=== PATIENT | female | born 2000 | race Caucasian/White ===

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

== ENCOUNTER 2019-06-07 00:33 | Emergency (ER) | payer OTHER, SELFPAY ==
--- NOTE | 2019-06-07 01:06 | EDPHYS ---
Physician Documentation [facility] Name: Miriam Ross Age: 19 yrs Sex: Female : 2000 Arrival Date: 06/07/2019 Time: 00:35 Bed 14 Private MD: ED Physician Chris Orozco HPI: 06/07 00:59 This 19 yrs old Female presents to ER via Ambulatory with complaints of [facility] Allergic Reaction. 00:59 The patient presents with itching, rash, that is diffuse. 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 - Social history:: Smoking status: Patient/guardian denies using tobacco, Patient/guardian denies using alcohol, street drugs. - Ebola Screening: : Patient negative for fever greater than or equal to 101.5 degrees Fahrenheit, and additional compatible Ebola Virus Disease symptoms Patient denies exposure to infectious person Patient denies travel to an Ebola-affected area in the 21 days before illness onset. - Family history:: not pertinent. ROS: 00:59 Constitutional: Negative for fever, chills, and weight loss, Eyes: Negative for injury, janis pain, redness, and discharge, ENT: Negative for injury, pain, and discharge, Neck: Negative for injury, pain, and swelling, Cardiovascular: Negative for chest pain, palpitations, and edema, Respiratory: Negative for shortness of breath, cough, wheezing, and pleuritic chest pain, Abdomen/GI: Negative for abdominal pain, nausea, vomiting, diarrhea, and constipation, Back: Negative for injury and pain, : Negative for injury, bleeding, discharge, and swelling, MS/Extremity: Negative for injury and deformity, Neuro: Negative for headache, weakness, numbness, tingling, and seizure, Psych: Negative for depression, anxiety, suicide ideation, homicidal ideation, and hallucinations, Allergy/Immunology: Negative for hives, rash, and allergies, Endocrine: Negative for neck swelling, polydipsia, polyuria, polyphagia, and marked weight changes, Hematologic/Lymphatic: Negative for swollen nodes, abnormal bleeding, and unusual bruising. 00:59 Skin: Positive for rash, diffusely. Exam: 00:59 Constitutional: This is a well developed, well nourished patient who is awake, alert, janis and in no acute distress. Head/Face: Normocephalic, atraumatic. Eyes: Pupils equal round and reactive to light, extra-ocular motions intact. Lids and lashes normal. Conjunctiva and sclera are non-icteric and not injected. Cornea within normal limits. Periorbital areas with no swelling, redness, or edema. ENT: Nares patent. No nasal discharge, no septal abnormalities noted. Tympanic membranes are normal and external auditory canals are clear. Oropharynx with no redness, swelling, or masses, exudates, or evidence of obstruction, uvula midline. Mucous membranes moist. Neck: Trachea midline, no thyromegaly or masses palpated, and no cervical lymphadenopathy. Supple, full range of motion without nuchal rigidity, or vertebral point tenderness. No Meningismus. Chest/axilla: Normal chest wall appearance and motion. Nontender with no deformity. No lesions are appreciated. Cardiovascular: Regular rate and rhythm with a normal S1 and S2. No gallops, murmurs, or rubs. Normal PMI, no JVD. No pulse deficits. Respiratory: Lungs have equal breath sounds bilaterally, clear to auscultation and percussion. No rales, rhonchi or wheezes noted. No increased work of breathing, no retractions or nasal flaring. Abdomen/GI: Soft, non-tender, with normal bowel sounds. No distension or tympany. No guarding or rebound. No evidence of tenderness throughout. Back: No spinal tenderness. No costovertebral tenderness. Full range of motion. Female : Normal external genitalia. MS/ Extremity: Pulses equal, no cyanosis. Neurovascular intact. Full, normal range of motion. Neuro: Awake and alert, GCS 15, oriented to person, place, time, and situation. Cranial nerves II-XII grossly intact. Motor strength 5/5 in all extremities. Sensory grossly intact. Cerebellar exam normal. Normal gait. Psych: Awake, alert, with orientation to person, place and time. Behavior, mood, and affect are within normal limits. 00:59 Skin: Appearance: Color: normal in color, Temperature: normal temperature, warm, Moisture: normal moisture, petechiae, not noted, ecchymosis, not noted, that are mild. Vital Signs: 00:45 BP 116 / 75; Pulse 93; Resp 20; Temp 98.1(O); Pulse Ox 99% on R/A; Weight 78.47 kg (R); fc Height 5 ft. 6 in. (167.64 cm) (R); Pain 0/10; 00:45 Body Mass Index 27.92 (78.47 kg, 167.64 cm) MDM: 00:49 Patient medically screened. [facility] 01:05 Data reviewed: vital signs, nurses notes. [facility] Administered Medications: 01:19 Drug: Benadryl 25 mg Route: PO; 02:28 Follow up: Response: No adverse reaction 01:21 Drug: predniSONE 60 mg Route: PO; 02:29 Follow up: Response: No adverse reaction 01:23 Drug: Pepcid 40 mg Route: PO; 02:29 Follow up: Response: No adverse reaction Disposition: 06/07/19 01:06 Discharged to Home. Impression: Urticaria, Urticaria, unspecified. - Condition is Stable. - Discharge Instructions: Hives, Hives, [id number]. - Prescriptions for Benadryl 25 mg Oral Capsule - take 1 capsule by ORAL route every 6 hours As needed; 30 tablet. Pepcid 20 mg Oral Tablet - take 1 tablet by ORAL route every 12 hours for 10 days; 20 tablet. Prednisone 20 mg Oral Tablet - take 2 tablet by ORAL route once daily for 5 days; 10 tablet. EpiPen 0.3 mg Injection auto- injector - inject 1 pen by INTRAMUSCULAR route one time Inject into the outer portion of the thigh, through clothing if necessary. Indicated in the emergency treatment of allergic reactions; 1 box. - Medication Reconciliation Form, Thank You Letter, Antibiotic Education, Prescription Opioid Use form. - Follow up: Private Physician; When: 2 - 3 days; Reason: Recheck today's complaints, Continuance of care, Re-evaluation by your physician. - Problem is new. - Symptoms have improved. Signatures: Chris Orozco MD MD cha Chretien, Felicia, RN RN Summer Landa Corrections: (The following items were deleted from the chart) 01:52 01:06 06/07/2019 01:06 Discharged to Home. Impression: Urticaria; Urticaria, wh unspecified. Condition is Stable. Forms are Medication Reconciliation Form, Thank You Letter, Antibiotic Education, Prescription Opioid Use. Follow up: Private Physician; When: 2 - 3 days; Reason: Recheck today's complaints, Continuance of care, Re-evaluation by your physician. Problem is new. Symptoms have improved. janis
--- NOTE | 2019-06-07 01:06 | ER ---
Nurse's Notes [facility] Name: Miriam Ross Age: 19 yrs Sex: Female : 2000 Arrival Date: 06/07/2019 Time: 00:35 Bed 14 Private MD: Diagnosis: Urticaria;Urticaria, unspecified Presentation: 06/07 00:45 Presenting complaint: Patient states: that she is having allergic reaction to fc something. She has hives to arms, chest and back. Is very itchy. Transition of care: patient was not received from another setting of care. Onset: The symptoms/episode began/occurred gradually. Anaphylaxis evaluation, no signs or symptoms of anaphylaxis were noted. Onset of symptoms was June 06, 2019. Risk Assessment: Do you want to hurt yourself or someone else? Patient reports no desire to harm self or others. Initial Sepsis Screen: Does the patient meet any 2 criteria? No. Patient's initial sepsis screen is negative. Does the patient have a suspected source of infection? No. Patient's initial sepsis screen is negative. Care prior to arrival: Medication(s) given: Benadryl 50 mg at 2300. 00:45 Method Of Arrival: Ambulatory fc 00:45 Acuity: GIL 4 fc Triage Assessment: 01:00 General: Appears in no apparent distress. Behavior is calm, cooperative, appropriate wh for age. 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 - Social history:: Smoking status: Patient/guardian denies using tobacco, Patient/guardian denies using alcohol, street drugs. - Ebola Screening: : Patient negative for fever greater than or equal to 101.5 degrees Fahrenheit, and additional compatible Ebola Virus Disease symptoms Patient denies exposure to infectious person Patient denies travel to an Ebola-affected area in the 21 days before illness onset. - Family history:: not pertinent. Screenin:45 Abuse screen: Denies threats or abuse. Nutritional screening: No deficits noted. fc Tuberculosis screening: No symptoms or risk factors identified. Fall Risk None identified. Assessment: 01:00 General: Appears in no apparent distress. Behavior is calm, cooperative, appropriate for age. Pain: Denies pain. Neuro: Level of Consciousness is awake, alert, obeys commands, Oriented to person, place, time, situation, Appropriate for age. Cardiovascular: Heart tones S1 S2. Respiratory: Airway is patent Respiratory effort is even, unlabored, Respiratory pattern is regular, symmetrical. GI: Abdomen is flat, non-distended. : No signs and/or symptoms were reported regarding the genitourinary system. EENT: No signs and/or symptoms were reported regarding the EENT system. Derm: Rash noted that is itchy. Musculoskeletal: Circulation, motion, and sensation intact. 01:00 Respiratory: Breath sounds are clear bilaterally. Vital Signs: 00:45 BP 116 / 75; Pulse 93; Resp 20; Temp 98.1(O); Pulse Ox 99% on R/A; Weight 78.47 kg (R); fc Height 5 ft. 6 in. (167.64 cm) (R); Pain 0/10; 00:45 Body Mass Index 27.92 (78.47 kg, 167.64 cm) ED Course: 00:35 Patient arrived in ED. ds1 00:45 Arm band placed on Patient placed in an exam room, on a stretcher. 00:45 Patient has correct armband on for positive identification. Placed in gown. Bed in low fc position. Call light in reach. Pulse ox on. NIBP on. 00:45 No provider procedures requiring assistance completed. 00:48 Summer Landa is Primary Nurse. 00:48 Chris Orozco MD is Attending Physician. [facility] 00:52 Triage completed. 01:45 Patient did not have IV access during this emergency room visit. Administered Medications: 01:19 Drug: Benadryl 25 mg Route: PO; 02:28 Follow up: Response: No adverse reaction 01:21 Drug: predniSONE 60 mg Route: PO; 02:29 Follow up: Response: No adverse reaction 01:23 Drug: Pepcid 40 mg Route: PO; 02:29 Follow up: Response: No adverse reaction Outcome: 01:06 Discharge ordered by . janis 01:52 Patient left the ED. 02:28 Discharged to home ambulatory. 02:28 Condition: stable 02:28 Discharge instructions given to patient, Instructed on discharge instructions, follow up and referral plans. medication usage, POC Hives Demonstrated understanding of instructions, follow-up care, medications, POC Prescriptions given X 4. Signatures: Chris Orozco MD MD cha Chretien, Felicia, RN RN Nancy Levy ds1 Summer Landa
[2019-06-07 01:12] VITALS: BP 116/75; TEMP 98.1; O2SAT 99
[2019-06-07] MEDS ORDERED: DIPHENHYDRAMINE 25 MG TAB/CAP ONE (01:16)
[2019-06-07] MEDS ORDERED: predniSONE 20 MG TAB ONE (01:16)
[2019-06-07] MEDS ORDERED: FAMOTIDINE 20 MG TAB ONE (01:17)
== END 2019-06-07 01:52 | disposition home or self-care (01) ==
LOC: ER 00:33
DX: L50.9 Urticaria, unspecified (principal)
CPT/HCPCS: 99283; J7512

== ENCOUNTER 2022-02-03 11:40 | Emergency (ER) | payer OTHER, SELFPAY ==
[2022-02-03] MEDS ORDERED: DERMABOND SKIN ADHESIVE TOP ONE (12:23)
[2022-02-03] MEDS ORDERED: LIDOCAINE 1% MPF 5 ML VIAL ONE (12:23)
--- NOTE | 2022-02-03 13:50 | ER ---
Nurse's Notes [facility] Name: Miriam Ross Age: 21 yrs Sex: Female : 2000 Arrival Date: 02/03/2022 Time: 11:43 Bed 10 Private MD: Diagnosis: Laceration without foreign body of other part of head-left eyebrow Presentation: 02/03 11:45 Chief complaint: Patient states: "I blackout and fell and hit the corner of the table" vg1 Pt stated "i dont eat much and that's probably why I passed out, i dont know, my mom said i may have low iron". 11:45 Method Of Arrival: Ambulatory vg1 11:45 Coronavirus screen: Vaccine status: Patient reports being unvaccinated. Client denies 1 travel out of the [place] in the last 14 days. Ebola Screen: Patient denies exposure to infectious person. Patient denies travel to an Ebola-affected area in the 21 days before illness onset. Complicating Factors: There are no complicating factors for this patient. Initial Sepsis Screen: Does the patient meet any 2 criteria? HR > 90 bpm. Does the patient have a suspected source of infection? No. Patient's initial sepsis screen is negative. Risk Assessment: Do you want to hurt yourself or someone else? Patient reports no desire to harm self or others. Onset of symptoms was February 03, 2022. 11:45 Acuity: GIL 3 vg1 Triage Assessment: 11:45 General: Appears uncomfortable, Behavior is crying. Pain: Complains of pain in inner vg1 aspect of left eyebrow Pain currently is 10 out of 10 on a pain scale. Injury Description:. 11:45 Neuro: Level of Consciousness is awake, alert, obeys commands, Oriented to person, vg1 place, time, situation. 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 - Social history:: Smoking status: Patient denies any tobacco usage or history of. Assessment: 12:04 Reassessment: pt refused to blood work; stated just wanted to get stitches. Was vg1 educated the reason for blood work due to 'passing out' and pt continued to refuse. Musculoskeletal: Circulation, motion, and sensation intact. Injury Description: Laceration is jagged, bleeding moderately. Vital Signs: 11:45 BP 133 / 80; Pulse 100; Resp 16; Temp 99.0; Pulse Ox 100% ; Weight 67.13 kg; Height 5 vg1 ft. 6 in. (167.64 cm); Pain 10/10; 11:45 Body Mass Index 23.89 (67.13 kg, 167.64 cm) vg1 Spurgeon Coma Score: 12:26 Eye Response: spontaneous(4). Verbal Response: oriented(5). Motor Response: obeys pm1 commands(6). Total: 15. ED Course: 11:43 Patient arrived in ED. 11:45 Arm band placed on. vg1 11:50 Gerardo Holcomb NP is PHCP. pm1 11:50 Trent Davis MD is Attending Physician. pm1 12:02 Triage completed. vg1 12:15 Ann Katz RN is Primary Nurse. 14:30 Assist provider with laceration repair. Patient did not have IV access during this emergency room visit. Administered Medications: 12:45 Drug: Lidocaine (1 %) 5 ml {Note: Administered by BRIGID Carrillo.} Volume: 5 ml; Route: ss Infiltration; Outcome: 13:50 Discharge ordered by MD. pm1 14:05 Discharged to home ambulatory. 14:05 Condition: good 14:05 Discharge instructions given to patient, Instructed on discharge instructions, follow up and referral plans. medication usage, Demonstrated understanding of instructions, follow-up care, medications, Prescriptions given X 2. 14:31 Patient left the ED. Signatures: Ann Katz RN RN Gerardo Holcomb NP HOUSEHOLD PERSONAL ASSISTANT pm1 Veronica Rodríguez Victoria, RN RN vg1
--- NOTE | 2022-02-03 13:50 | EDPHYS ---
Physician Documentation [facility] Name: Miriam Ross Age: 21 yrs Sex: Female : 2000 Arrival Date: 02/03/2022 Time: 11:43 Bed 10 Private MD: ED Physician Trent Davis HPI: 02/03 12:26 This 21 yrs old Female presents to ER via Ambulatory with complaints of Laceration To pm1 Forehead. 12:26 The patient or guardian reports a laceration, irregular. The complaints affect the pm1 inner aspect of left eyebrow. Context of injury: The problem was sustained at home, resulted from Syncopal episode. Onset: The symptoms/episode began/occurred just prior to arrival. Associated signs and symptoms: Pertinent positives: loss of conciousness, headache. Severity of symptoms: in the emergency department the symptoms are unchanged. The patient has experienced similar episodes in the past, a few times, Syncopal episode usually related to decreased p.o. intake of food or fluid. The patient has not recently seen a physician. 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 - Social history:: Smoking status: Patient denies any tobacco usage or history of. ROS: 12:26 Constitutional: Negative for fever, chills, and weight loss, Cardiovascular: Negative pm1 for chest pain, palpitations, and edema, Respiratory: Negative for shortness of breath, cough, wheezing, and pleuritic chest pain, MS/Extremity: Negative for injury and deformity. 12:26 Skin: Positive for laceration(s), of the inner aspect of left eyebrow. 12:26 Neuro: Positive for headache, loss of consciousness. 12:26 All other systems are negative. pm1 Exam: 12:26 Constitutional: This is a well developed, well nourished patient who is awake, alert, pm1 and in no acute distress. 12:26 Head/face: Noted is no obvious of injury or deformity except a laceration(s), 4 cm(s), of the inner aspect of left eyebrow. 12:26 Neck: Exam negative for acute changes, C-spine: vertebral tenderness, is not appreciated, ROM/movement: no acute changes. 12:26 Cardiovascular: Exam negative for acute changes, Rate: normal, Rhythm: regular, Pulses: no pulse deficits are appreciated. 12:26 Respiratory: Exam negative for acute changes, respiratory distress, shortness of breath. 12:26 Skin: Appearance: normal except for affected area, injury, laceration(s), the wound is approximately 4 cm(s), of the inner aspect of left eyebrow, that can be described as clean, no foreign body, irregular, with mild bleeding. 12:26 Neuro: Exam negative for acute changes, Orientation: is normal, Mentation: is normal, Motor: moves all fours. Vital Signs: 11:45 BP 133 / 80; Pulse 100; Resp 16; Temp 99.0; Pulse Ox 100% ; Weight 67.13 kg; Height 5 vg1 ft. 6 in. (167.64 cm); Pain 10/10; 11:45 Body Mass Index 23.89 (67.13 kg, 167.64 cm) vg1 Raza Coma Score: 12:26 Eye Response: spontaneous(4). Verbal Response: oriented(5). Motor Response: obeys pm1 commands(6). Total: 15. Laceration: 13:47 Wound Repair of 4cm ( 1.6in ) subcutaneous laceration to inner aspect of left eyebrow. pm1 Irregularly shaped.. Distal neuro/vascular/tendon intact. Anesthesia: Local anesthetic administered with 2 mls of 1% lidocaine. Wound prep: Extensive cleansing with hibiclenz by nurse, Wound irrigation with saline by nurse, Wound explored extensively, Copious irrigation. Skin closed with 14 6-0 Prolene using simple sutures and sterile technique. Dressed with 4x4's. Patient tolerated well. MDM: 11:50 Patient medically screened. pm1 11:58 Refusal of service: The patient/guardian displays adequate decision making capability pm1 and despite a detailed discussion of alternatives, benefits, risks, and consequences refuses: CT Scan, all lab tests, all X-rays, EKG. Patient just wants me to perform a suture repair of her cut. 13:47 Data reviewed: vital signs. Data interpreted: Pulse oximetry: on room air is 100 %. pm1 Interpretation: normal. Counseling: I had a detailed discussion with the patient and/or guardian regarding: the historical points, exam findings, and any diagnostic results supporting the discharge/admit diagnosis, the need for outpatient follow up, to return to the emergency department if symptoms worsen or persist or if there are any questions or concerns that arise at home, suture removal in 7-10 days. 02/03 12:13 Order name: Dermabond; Complete Time: 12:15 pm1 02/03 12:13 Order name: Dressing - Wound; Complete Time: 14:14 pm1 02/03 12:13 Order name: Gloves, Sterile; Complete Time: 12:19 pm1 02/03 12:13 Order name: Prolene, Sutures; Complete Time: 12:19 pm1 02/03 12:13 Order name: Setup Suture Tray; Complete Time: 12:19 pm1 Administered Medications: 12:45 Drug: Lidocaine (1 %) 5 ml {Note: Administered by NP. Gerardo} Volume: 5 ml; Route: ss Infiltration; Disposition: 14:54 Co-signature as Attending Physician, Trent Davis MD I agree with the assessment and kdr plan of care. Disposition Summary: 02/03/22 13:50 Discharge Ordered Location: Home pm1 Problem: new pm1 Symptoms: have improved pm1 Condition: Stable pm1 Diagnosis - Laceration without foreign body of other part of head - left eyebrow pm1 Followup: pm1 - With: Emergency Department - When: As needed - Reason: Worsening of condition Followup: pm1 - With: Private Physician - When: 7 - 10 days - Reason: Recheck today's complaints, Continuance of care, Staple/Suture removal, Re-evaluation by your physician Discharge Instructions: - Discharge Summary Sheet pm1 - Head Injury, Adult pm1 - Facial Laceration pm1 Forms: - Medication Reconciliation Form pm1 - Thank You Letter pm1 - Antibiotic Education pm1 - Prescription Opioid Use pm1 - Work release form eb Prescriptions: - Cephalexin 500 mg Oral Capsule - take 1 capsule by ORAL route every 8 hours for 10 days; 30 capsule; Refills: 0, pm1 Product Selection Permitted - Tylenol-Codeine #3 300 mg-30 mg Oral - take 2 tablet by ORAL route every 6 hours As needed; 12 tablet; Refills: 0, pm1 Product Selection Permitted Signatures: Trent Davis MD MD kdr Ann Katz RN RN ss Gerardo Holcomb, BRIGID HOME DAY CARE PROVIDER pm1 Catie Last RN RN vg1
[2022-02-03 14:37] VITALS: BP 133/80; TEMP 99; O2SAT 100
== END 2022-02-03 14:31 | disposition home or self-care (01) ==
LOC: ER 11:40
PROC: 0JQ10ZZ Repair Face Subcutaneous Tissue and Fascia, Open Approach (ICD-10-PCS; principal; 2022-02-03)
DX: S01.112A Laceration without foreign body of left eyelid and periocular area, initial encounter (principal)
CPT/HCPCS: 99283

== ENCOUNTER 2022-02-10 07:05 | Emergency (ER) | payer SELFPAY ==
--- NOTE | 2022-02-10 07:21 | ER ---
Nurse's Notes [facility] Name: Miriam Ross Age: 21 yrs Sex: Female : 2000 Arrival Date: 02/10/2022 Time: 07:07 Bed 12 Private MD: Diagnosis: Encounter for removal of sutures-Needs more time Presentation: 02/10 07:13 Chief complaint: Patient states: I got to get my sutures out. Coronavirus screen: j9 Vaccine status: Patient reports being unvaccinated. Ebola Screen: Patient negative for fever greater than or equal to 101.5 degrees Fahrenheit, and additional compatible Ebola Virus Disease symptoms Patient denies exposure to infectious person. Patient denies travel to an Ebola-affected area in the 21 days before illness onset. Initial Sepsis Screen: Does the patient meet any 2 criteria? No. Patient's initial sepsis screen is negative. Does the patient have a suspected source of infection? No. Patient's initial sepsis screen is negative. Risk Assessment: Do you want to hurt yourself or someone else? Patient reports no desire to harm self or others. Onset of symptoms is unknown. 07:13 Method Of Arrival: Ambulatory 9 07:13 Acuity: GIL 5 jg9 Triage Assessment: 07:14 General: Appears in no apparent distress. Behavior is calm, cooperative. Pain: jg9 Complains of pain in left eye. EENT: sutures noted in place just above left eye. Neuro: No deficits noted. Cardiovascular: No deficits noted. Respiratory: No deficits noted. GI: No deficits noted. : No deficits noted. Derm: No deficits noted. Musculoskeletal: No deficits noted. 07:15 Derm: Wound noted Wound is left eye brow sutures. 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 Flu vaccine is up to date. - Social history:: Smoking status: Patient denies any tobacco usage or history of. - Family history:: not pertinent. - Hospitalizations: : No recent hospitalization is reported. Screenin:16 Abuse screen: Denies threats or abuse. Denies injuries from another. Nutritional jg9 screening: No deficits noted. Tuberculosis screening: No symptoms or risk factors identified. Fall Risk None identified. Assessment: 07:33 Reassessment: patient left without discharge papers. jg9 Vital Signs: 07:13 BP 117 / 58; Pulse 65; Resp 12 S; Temp 99.1(T); Pulse Ox 99% on R/A; Weight 70.76 kg; jg9 Height 5 ft. 5 in. (165.10 cm); Pain 4/10; 07:13 Body Mass Index 25.96 (70.76 kg, 165.10 cm) jg9 ED Course: 07:07 Patient arrived in ED. as 07:09 Yvrose Rosa, RN is Primary Nurse. jg9 07:09 Mike Younger MD is Attending Physician. rn 07:14 Triage completed. jg9 07:16 Arm band placed on right wrist. jg9 07:17 Patient has correct armband on for positive identification. Bed in low position. Call jg9 light in reach. 07:33 No provider procedures requiring assistance completed. jg9 07:34 Patient did not have IV access during this emergency room visit. jg9 Administered Medications: No medications were administered Medication: 07:34 VIS not applicable for this client. jg9 Outcome: 07:21 Discharge ordered by . rn 07:33 Discharged to home ambulatory. jg9 07:33 Condition: unchanged 07:33 Discharge instructions given to patient, Instructed on discharge instructions, follow up and referral plans. Demonstrated understanding of instructions, follow-up care. 07:34 Patient left the ED. jg9 Signatures: Leesa Garcia Roman, MD MD rn Gilmore, Jennifer, RN RN jg9
--- NOTE | 2022-02-10 07:21 | EDPHYS ---
Physician Documentation [facility] Name: Miriam Ross Age: 21 yrs Sex: Female : 2000 Arrival Date: 02/10/2022 Time: 07:07 Bed 12 Private MD: ED Physician Mike Younger HPI: 02/10 07:18 This 21 yrs old Female presents to ER via Ambulatory with complaints of Suture Removal. rn 07:18 The patient has sutures on the left brow. Previous treatment: The patient was initially rn treated 7 day(s) ago. Sutures/china progress: The patient has no c/o's. The wound is well-healing with no redness, swelling, discharge, or dehiscence reported. The patient has not experienced similar symptoms in the past. The patient has been recently seen by a physician:. Pt reports healing well, s/p suture placement 14 days ago. No drainage or fever. . 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 Flu vaccine is up to date. - Social history:: Smoking status: Patient denies any tobacco usage or history of. - Family history:: not pertinent. - Hospitalizations: : No recent hospitalization is reported. ROS: 07:18 Constitutional: Negative for fever, chills, and weight loss, Skin: + sutures placed 7 rn days ago Exam: 07:18 Constitutional: This is a well developed, well nourished patient who is awake, alert, rn and in no acute distress. Skin: Warm, dry, well healing sutures in left eyebrow, no drainage. Vital Signs: 07:13 BP 117 / 58; Pulse 65; Resp 12 S; Temp 99.1(T); Pulse Ox 99% on R/A; Weight 70.76 kg; jg9 Height 5 ft. 5 in. (165.10 cm); Pain 4/10; 07:13 Body Mass Index 25.96 (70.76 kg, 165.10 cm) jg9 MDM: 07:09 Patient medically screened. rn 07:18 Data reviewed: vital signs, nurses notes, and as a result, I will discharge patient. ED rn course: After discussion with patient, she prefers to wait another couple of days to remove sutures given 14 sutures, has only been 7 days, and risk of wound opening. Laceration in brow so minimal scarring. She will return in 2 days.. Administered Medications: No medications were administered Disposition Summary: 02/10/22 07:21 Discharge Ordered Location: Home rn Problem: new rn Symptoms: have improved rn Condition: Stable rn Diagnosis - Encounter for removal of sutures - Needs more time rn Followup: rn - With: Private Physician - When: As needed - Reason: Recheck today's complaints, Re-evaluation by your physician Discharge Instructions: - Discharge Summary Sheet rn - Laceration Care, Adult rn Forms: - Medication Reconciliation Form rn - Thank You Letter rn - Antibiotic appeals rn - Prescription Opioid Use rn Signatures: Mike Younger MD MD rn Gilmore, Jennifer, RN RN jg9
[2022-02-10 07:39] VITALS: BP 117/58; TEMP 99.1; O2SAT 99
== END 2022-02-10 07:34 | disposition home or self-care (01) ==
LOC: ER 07:05
DX: Z48.02 Encounter for removal of sutures (principal)
CPT/HCPCS: 99281

== ENCOUNTER 2022-02-12 07:29 | Emergency (ER) | payer SELFPAY ==
--- NOTE | 2022-02-12 07:54 | EDPHYS ---
Physician Documentation [facility] Name: Miriam Ross Age: 21 yrs Sex: Female : 2000 Arrival Date: 02/12/2022 Time: 07:31 Bed 19 Private MD: ED Physician Mike Younger HPI: 02/12 07:50 This 21 yrs old Female presents to ER via Ambulatory with complaints of Suture Removal. rn 07:50 The patient has sutures on the inner aspect of left eyebrow. Previous treatment: The rn patient was initially treated 9 day(s) ago. Sutures/china progress: The patient has no c/o's. The wound is well-healing with no redness, swelling, discharge, or dehiscence reported. The patient has not experienced similar symptoms in the past. The patient has been recently seen at the [facility] Emergency Department. 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 - Social history:: Smoking status: Patient denies any tobacco usage or history of. - Family history:: not pertinent. - Hospitalizations: : No recent hospitalization is reported. ROS: 07:50 Constitutional: Negative for fever, chills, and weight loss, Skin: + well healed rn sutures left eyebrow Exam: 07:50 Constitutional: This is a well developed, well nourished patient who is awake, alert, rn and in no acute distress. Skin: Well healed sutures left eyebrow Vital Signs: 07:36 BP 105 / 60; Pulse 57; Resp 17; Temp 98.1; Pulse Ox 99% ; Weight 71.67 kg; Height 5 ft. ap3 5 in. (165.10 cm); 07:36 Body Mass Index 26.29 (71.67 kg, 165.10 cm) ap3 Procedures: 07:50 Suture/Staple removal: Removed 14 sutures, from inner aspect of left eyebrow, site rn appears well healed, Patient tolerated well. MDM: 07:34 Patient medically screened. rn 07:52 Data reviewed: vital signs, nurses notes, and as a result, I will discharge patient. rn Counseling: I had a detailed discussion with the patient and/or guardian regarding: the historical points, exam findings, and any diagnostic results supporting the discharge/admit diagnosis, the need for outpatient follow up, to return to the emergency department if symptoms worsen or persist or if there are any questions or concerns that arise at home. Special discussion: I discussed with the patient/guardian in detail that at this point there is no indication for admission to the hospital. It is understood, however, that if the symptoms persist or worsen the patient needs to return immediately for re-evaluation. Administered Medications: No medications were administered Disposition Summary: 02/12/22 07:53 Discharge Ordered Location: Home rn Problem: new rn Symptoms: have improved rn Condition: Stable rn Diagnosis - Encounter for removal of sutures rn Followup: rn - With: Private Physician - When: As needed - Reason: Recheck today's complaints, Re-evaluation by your physician Discharge Instructions: - Discharge Summary Sheet rn - Suture Removal, Care After rn - How to Minimize Scarring After Surgery rn Forms: - Medication Reconciliation Form rn - Thank You Letter rn - Antibiotic learning developer - Prescription Opioid Use rn Signatures: Mike Younger MD MD rn Prokisch, Amanda, RN RN ap3 Corrections: (The following items were deleted from the chart) 07:52 07:50 Suture/Staple removal: Removed 14 sutures, rn rn
--- NOTE | 2022-02-12 07:54 | ER ---
Nurse's Notes [facility] Name: Miriam Ross Age: 21 yrs Sex: Female : 2000 Arrival Date: 02/12/2022 Time: 07:31 Bed 19 Private MD: Diagnosis: Encounter for removal of sutures Presentation: 02/12 07:36 Chief complaint: Patient states: patient is here to have sutures removed from her left ap3 eyebrow area. patient states they were placed in his ED approx 9 days ago. Coronavirus screen: At this time, the client does not indicate any symptoms associated with coronavirus-19. Ebola Screen: No symptoms or risks identified at this time. Initial Sepsis Screen: Does the patient meet any 2 criteria? No. Patient's initial sepsis screen is negative. Does the patient have a suspected source of infection? No. Patient's initial sepsis screen is negative. Risk Assessment: Do you want to hurt yourself or someone else? Patient reports no desire to harm self or others. Onset of symptoms was February 03, 2022. 07:36 Method Of Arrival: Ambulatory ap3 07:36 Acuity: GIL 4 ap3 Triage Assessment: 07:38 General: Appears in no apparent distress. Behavior is calm, cooperative, appropriate ap3 for age. Pain: Denies pain. Neuro: Level of Consciousness is awake, alert, obeys commands, Oriented to person, place, time, situation. Cardiovascular: Patient's skin is warm and dry. Respiratory: Airway is patent Respiratory effort is even, unlabored, Respiratory pattern is regular, symmetrical. Derm: Wound noted inner aspect of left eyebrow and middle aspect of left eyebrow. 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 - Social history:: Smoking status: Patient denies any tobacco usage or history of. - Family history:: not pertinent. - Hospitalizations: : No recent hospitalization is reported. Screenin:38 Abuse screen: Denies threats or abuse. Nutritional screening: No deficits noted. ap3 Tuberculosis screening: No symptoms or risk factors identified. Fall Risk None identified. Assessment: 07:46 Reassessment: Patient appears in no apparent distress at this time. Patient is alert, ph oriented x 3, equal unlabored respirations, skin warm/dry/pink. Dr Younger at bedside for suture removal to L eyebrow, pt tolerating well. Vital Signs: 07:36 BP 105 / 60; Pulse 57; Resp 17; Temp 98.1; Pulse Ox 99% ; Weight 71.67 kg; Height 5 ft. ap3 5 in. (165.10 cm); 07:36 Body Mass Index 26.29 (71.67 kg, 165.10 cm) ap3 ED Course: 07:31 Patient arrived in ED. rg4 07:34 Lee Ann Beal, RN is Primary Nurse. ph 07:34 Mike Younger MD is Attending Physician. rn 07:37 Triage completed. ap3 07:38 Arm band placed on right wrist. ap3 07:39 Patient has correct armband on for positive identification. Bed in low position. Call ap3 light in reach. Adult w/ patient. Pulse ox on. NIBP on. Door closed. Noise minimized. 08:00 No provider procedures requiring assistance completed. Patient did not have IV access ph during this emergency room visit. Administered Medications: No medications were administered Medication: 08:00 VIS not applicable for this client. ph Outcome: 07:53 Discharge ordered by . rn 08:01 Discharged to home ambulatory. ph 08:01 Condition: good 08:01 Discharge instructions given to patient, Instructed on discharge instructions, follow up and referral plans. Demonstrated understanding of instructions, follow-up care. 08:01 Patient left the ED. ph Signatures: Mike Younger MD MD rn Hall, Patricia, RN RN ph Garcia, Rubi rg4 Barbara Hunt RN RN ap3
[2022-02-12 08:07] VITALS: BP 105/60; TEMP 98.1; O2SAT 99
== END 2022-02-12 08:01 | disposition home or self-care (01) ==
LOC: ER 07:29
DX: Z48.02 Encounter for removal of sutures (principal)
CPT/HCPCS: 99283